=== PATIENT | female | born 1990 | race African-American/Black ===

== ENCOUNTER 2017-01-13 12:39 | Emergency (ER) | payer SELFPAY ==
[~2017-01-13] VITALS: Ht 175.3 cm; Wt 65.0 kg
[2017-01-13] MEDS ORDERED: SOD CHLORIDE 0.9% 1,000 ML IV STA ×2 (12:41→14:34)
[2017-01-13] MEDS ORDERED: morphine 4 MG/ML VIAL IV STA (12:41)
[2017-01-13] MEDS ORDERED: ONDANSETRON 4 MG INJ IV STA ×4 (12:41→17:15)
[2017-01-13 12:52] VITALS: Ht 175.3 cm; Wt 65.0 kg
[2017-01-13 13:27] LABS: ADD SCAN DIFF NO
[2017-01-13 13:28] LABS: BASOPHIL # 0.1 10^3/ul (0.0-0.1); BASOPHILS % 0.9 % (0.0-2.0); EOSINOPHILS # 0.3 10^3/ul (0.0-0.5); HEMATOCRIT 33.8 % (37.0-47.0); HEMOGLOBIN 11.1 g/dl (12.0-16.0); LYMPHOCYTES # 2.1 10^3/ul (0.8-2.9); LYMPHOCYTES % 16.6 % (15.0-51.0); MEAN CORPUSCULAR HEMOGLOBIN 27.3 pg (29.0-33.0); MEAN CORPUSCULAR HGB CONC 32.8 g/dl (32.0-37.0); MEAN CORPUSCULAR VOLUME 83.3 fl (82.0-101.0); MEAN PLATELET VOLUME 9.7 fl (7.4-10.4); MONOCYTE # 0.5 10^3/ul (0.3-0.9); NEUTROPHIL # 9.8 10^3/ul (1.6-7.5); NEUTROPHILS % 76.2 % (39.0-77.0); PLATELET COUNT 287 10^3/UL (140-415); RED BLOOD COUNT 4.06 10^6/ul (4.20-5.40); RED CELL DISTRIBUTION WIDTH 15.8 % (11.5-14.5); WHITE BLOOD COUNT 12.9 10^3/ul (4.8-10.8)
[2017-01-13 13:45] LABS: INR 0.95; PARTIAL THROMBOPLASTIN TIME 28.3 Sec (25.0-35.0); PROTIME 12.7 Sec (12.2-14.2)
[2017-01-13] MEDS ORDERED: HYDROmorphONE 1 MG/ML SYG IV STA ×3 (13:47→17:15)
[2017-01-13 13:48] LABS: ALBUMIN 4.1 g/dl (3.3-4.9); ALBUMIN/GLOBULIN RATIO 1.13; BILIRUBIN,INDIRECT 0.7 mg/dl (0-1.1); BILIRUBIN,TOTAL 0.7 mg/dl (0.2-1.3); CALCIUM 9.3 mg/dl (8.4-10.2); CREATININE 0.76 mg/dl (0.44-1.00); POTASSIUM 3.5 mmol/L (3.5-5.1); TOTAL PROTEIN 7.7 g/dl (6.1-8.1)
--- NOTE | 2017-01-13 14:06 | RADRPT ---
PROCEDURE: Pelvic ultrasound. CLINICAL INDICATION: Pelvic pain TECHNIQUE: Flores scale, color doppler, spectral doppler ultrasound of the pelvis was performed with transabdominal and transvaginal transducers. COMPARISON: No prior studies are available for comparison. FINDINGS: Uterus: Position: Anteverted. 3.6 x 2.0 x 2.5 cm intramural fibroid of the anterior uterine body does not appear to reach the endo metrium. 2.3 x 2.3 x 2.5 cm subserosal appearing fibroid of the right anterior uterine body. Normal appearance of the endometrium. Ovaries: Normal sized ovaries with preserved blood flow. No adnexal masses. Small normal appearing follicles are observed within both ovaries measuring less than 2.0 cm. Free fluid: Trace amount. Measurements: Endometrium: 0.9 cm Uterus: 7.8 x 5.2 x 5.8 cm Right ovary: 3.7 x 2.0 x 2.2 cm Left ovary: 2.7 x 1.6 x 1.9 cm IMPRESSION: Normal appearance of both ovaries. Moderately sized uterine fibroids. Normal appearance the endometrium. RPTAT: AADD .Mihai Jones MD, Date Time Electronically viewed and signed by .Mihai Jones MD, on 01/13/2017 14:06 .B/
[2017-01-13] MEDS ORDERED: SOD CHLORIDE 0.9% 100 ML ONE (14:09)
[2017-01-13] MEDS ORDERED: IOHEXOL 300MG/ML 150 ML BTL ONE (14:09)
--- NOTE | 2017-01-13 14:35 | RADRPT ---
PROCEDURE: CT abdomen and pelvis with contrast. CLINICAL INDICATION: Abdominal pain TECHNIQUE: CT of the abdomen/pelvis was performed utilizing axial images with reconstructions in s agittal and coronal planes following the intravenous administration of 95 cc Omnipaque-300 contrast. The administered radiation dose is CTDI 6.04 mGy, DLP 331.62 mGy-cm. One or more of the following d ose reduction techniques were used: Automated exposure control, Adjustment of the mA and/or kV accor ding to patient size, or Use of iterative reconstruction technique. COMPARISON: There are no similar studies submitted for comparison. FINDINGS: Lung bases: The lung bases are clear except for mild peripheral atelectasis. .The heart is normal s ize without pericardial effusion. CT ABDOMEN: Gastrointestinal tract: There is no bowel obstruction.No abnormal colonic wall thickening is identif ied.There is no pneumoperitoneum. The appendix is not definitely visualized. Liver: The liver is normal in size without focal lesion.There is no intrahepatic ductal dilatation. Gallbladder: The gallbladder is grossly unremarkable. Pancreas: The pancreas is grossly unremarkable. Spleen: The spleen is normal in size without focal lesion. Kidneys: The kidneys are normal in size and contour. A punctate calcification is seen in the inferio r pole of the left kidney. Punctate calcification is also seen in the interpolar region of the righ t kidney. A 4 mm right proximal ureteral stone is noted. There is associated mild right hydronephro sis. Sub-centimeter low attenuation lesion in the interpolar right kidney is too small to definitiv edwar characterize. Adrenal glands: The bilateral adrenal glands are unremarkable. Retroperitoneum: There is no retroperitoneal adenopathy.The aorta is normal in caliber. CT PELVIS: Pelvic organs: The uterus contains several fibroids. Involuting cysts are seen in the right ovary. Bladder: The bladder is unremarkable. There is a small amount of free fluid in the pelvis which may be physiological. No pelvic adenopath y is identified. Osseous structures: No destructive lytic or blastic osseous lesion is identified. IMPRESSION: 1. Right proximal ureteral 4 mm stone with mild right hydronephrosis. 2. Bilateral punctate nephrolithiasis. 3. Fibroid uterus. 4. Involuting cysts in the right ovary. 5. Small volume free fluid in the pelvis, likely related to a ruptured ovarian cyst. RPTAT: PP Igor Schwab, Physician Date Time Electronically viewed and signed by Igor Schwab, Physician on 01/13/2017 14:35 /
[2017-01-13] MEDS ORDERED: KETOROLAC 30 MG INJ IV STA (15:10)
[2017-01-13] MEDS ORDERED: IBUP800T25 PO (17:10)
[2017-01-13] MEDS ORDERED: CEPH-443 PO (17:10)
[2017-01-13] MEDS ORDERED: HYDR-906 PO (17:10)
[2017-01-13] MEDS ORDERED: TAMS-14 PO (17:16)
--- NOTE | 2017-01-13 17:51 | ERD ---
ER Documentation Chief Complaint Date/Time DATE: 01/13/17 TIME: 17:41 Chief Complaint BIB RA FOR EVAL OF RT ABD PAIN HPI This is a 26-year-old female presents the emergency department complaining of a sudden onset of severe right lower quadrant pain that occurred just prior to arrival. The patient stated she awoke this morning and felt fine. She went to use the bathroom while urinating she stated there was a sharp pain in the flank region that began to radiate to the right lower quadrant. She stated the pain was 10 out of 10 in intensity. She felt nauseous and had one episode of nonbloody nonbilious emesis. She denies any frequency urgency or dysuria. She states she has never had any similar pain in the past. She denies any recent remote blunt or penetrating abdominal trauma. She denies any fever shaking or chills. She denies any abnormal urethral discharge. She states she has a history of uterine fibroids. He did not take any analgesic medicine prior to arrival ROS All systems reviewed and are negative except as per history of present illness. Medications Home Meds Active Scripts Tamsulosin Hcl* (Flomax*) 0.4 Mg Cap.er.24h, 0.4 MG PO BID for 7 Days, CAP Prov:JOMARSOTO 01/13/17 Ibuprofen* (Motrin*) 800 Mg Tab, 800 MG PO Q6H Y for PAIN AND OR ELEVATED TEMP, #30 TAB Prov:JOMAR,SOTO 01/13/17 Hydrocodone/Acetaminophen ([place] 5-325 Tablet) 1 Each Tablet, 1 TAB PO Q6H Y for PAIN, #20 TAB Prov:DIMITRIS HADLEYTHIA 01/13/17 Cephalexin* (Keflex*) 500 Mg Capsule, 500 MG PO QID for 7 Days, CAP Prov:JOMAR,SOTO 01/13/17 Allergies Allergies: Coded Allergies: No Known Allergy (Unverified , 01/13/17) PMhx/Soc Medical and Surgical Hx: pt denies Medical Hx, pt denies Surgical Hx Hx Alcohol Use: No Hx Substance Use: No Hx Tobacco Use: No Smoking Status: Never smoker Physical Exam Vitals Vital Signs Date Time Temp Pulse Resp B/P Pulse Ox O2 Delivery O2 Flow Rate FiO2 01/13/17 14:56 67 14 110/70 98 Room Air 01/13/17 12:52 98.0 60 19 130/94 100 Physical Exam Constitutional:Well-developed. Well-nourished. Patient appeared to be in a significant amount of discomfort secondary to pain. Tearful HEENT:Normocephalic. Atraumatic.Pupils were equal round reactive to light. Moist mucous membranes.No tonsillar exudates. Neck: No nuchal rigidity. No lymphadenopathy. No posterior cervical spine tenderness or step-offs. Respiratory: Not using accessory muscles of respiration.Lungs were clear to auscultation bilaterally. No rhonchi. No rales. No wheezing. Cardiovascular: Regular rate regular rhythm.No murmurs. No rubs were appreciated.S1, S2 normal. Distal pulses are palpable 2+ bilaterally. GI: Abdomen was soft. Tenderness in the right lower quadrant with negative psoas and obturator sign. Right CVA tenderness. Non Distended. No pulsatile abdominal masses or bruits. No rebound. No guarding. Bowel sounds were present and normal. : Pelvic exam was deferred by patient. She did however agree to a transvaginal ultrasound to be performed. Muscle skeletal: Full range of motion of both the upper and lower extremities bilaterally.Normal muscle tone.No assymetrical calf tenderness or swelling. Skin: No petechia, no purpura. No lesions on the palms or the soles of the feet. No maculopapular rash. NEURO: Patient was alert, awake, orientated x3.No facial droop. Gait observed and normal with no ataxia.Speech had regular rate and rhythm. No focal neurological deficits. Result Diagram: 01/13/17 1305 01/13/17 1305 Results 24 hrs Laboratory Tests Test 01/13/17 13:05 White Blood Count 12.910^3/ul Red Blood Count 4.0610^6/ul Hemoglobin 11.1g/dl Hematocrit 33.8% Mean Corpuscular Volume 83.3fl Mean Corpuscular Hemoglobin 27.3pg Mean Corpuscular Hemoglobin Concent 32.8g/dl Red Cell Distribution Width 15.8% Platelet Count 61142^3/UL Mean Platelet Volume 9.7fl Neutrophils % 76.2% Lymphocytes % 16.6% Monocytes % 4.0% Eosinophils % 2.0% Basophils % 0.9% Neutrophils # 9.810^3/ul Lymphocytes # 2.110^3/ul Monocytes # 0.510^3/ul Eosinophils # 0.310^3/ul Basophils # 0.110^3/ul Nucleated Red Blood Cells # 0.010^3/ul Prothrombin Time 12.7Sec Prothrombin Time Ratio 1.0 INR International Normalized Ratio 0.95 Activated Partial Thromboplast Time 28.3Sec Sodium Level 142mmol/L Potassium Level 3.5mmol/L Chloride Level 104mmol/L Carbon Dioxide Level 23mmol/L Anion Gap 19 Blood Urea Nitrogen 11mg/dl Creatinine 0.76mg/dl Glucose Level 137mg/dl Calcium Level 9.3mg/dl Total Bilirubin 0.7mg/dl Direct Bilirubin 0.00mg/dl Indirect Bilirubin 0.7mg/dl Aspartate Amino Transf (AST/SGOT) 21IU/L Alanine Aminotransferase (ALT/SGPT) 23IU/L Alkaline Phosphatase 42IU/L Total Protein 7.7g/dl Albumin 4.1g/dl Globulin 3.60g/dl Albumin/Globulin Ratio 1.13 Amylase Level 78U/L Lipase 46U/L Serum HCG, Qualitative NEGATIVE Current Medications Medications (Trade) Dose Ordered Sig/Matthew Route PRN Reason Start Time Stop Time Status Last Admin Dose Admin Sodium Chloride (NS) 1,000 ml @ 1,000 mls/hr Q1H STAT IV 01/13/17 12:41 01/13/17 13:40 DC 01/13/17 13:07 Morphine Sulfate (morphine) 4 mg ONCE STAT IV 01/13/17 12:41 01/13/17 12:44 DC 01/13/17 13:05 Ondansetron HCl (Zofran Inj) 4 mg ONCE STAT IV 01/13/17 12:41 01/13/17 12:44 DC 01/13/17 13:05 Hydromorphone HCl (Dilaudid) 1 mg ONCE STAT IV 01/13/17 13:47 01/13/17 13:48 DC 01/13/17 13:54 Ondansetron HCl (Zofran Inj) 4 mg ONCE STAT IV 01/13/17 13:47 01/13/17 13:48 DC 01/13/17 13:54 IV Flush 10 ml 10 ml STK-MED ONCE .ROUTE 01/13/17 14:09 01/13/17 14:10 DC 01/13/17 14:41 Sodium Chloride (NS) 100 ml @ ud STK-MED ONCE .ROUTE 01/13/17 14:09 01/13/17 14:10 DC 01/13/17 14:41 Iohexol 150 ml 150 ml STK-MED ONCE .ROUTE 01/13/17 14:09 01/13/17 14:10 DC 01/13/17 14:42 Sodium Chloride (NS) 1,000 ml @ 1,000 mls/hr Q1H STAT IV 01/13/17 14:34 01/13/17 15:33 DC 01/13/17 14:52 Hydromorphone HCl (Dilaudid) 1 mg ONCE STAT IV 01/13/17 14:34 01/13/17 14:37 DC 01/13/17 14:52 Ondansetron HCl (Zofran Inj) 4 mg ONCE STAT IV 01/13/17 14:34 01/13/17 14:37 DC 01/13/17 14:52 Ketorolac Tromethamine (Toradol) 30 mg ONCE STAT IV 01/13/17 15:10 01/13/17 15:11 DC 01/13/17 15:55 Hydromorphone HCl (Dilaudid) 1 mg ONCE STAT IV 01/13/17 17:15 01/13/17 17:17 DC 01/13/17 17:36 Ondansetron HCl (Zofran Inj) 4 mg ONCE STAT IV 01/13/17 17:15 01/13/17 17:17 DC 01/13/17 17:36 Procedures/MDM This patient presented to the emergency department with abdominal pain and was seen and evaluated by myself. My differential diagnosis included but was not limited to abdominal aortic aneurysm, appendicitis, pancreatitis, perforated peptic ulcer, perforated viscus, Boerhaaves syndrome or visceral pain such as diverticulitis, DKA, esophagitis, hepatitis or bowel obstruction. The patient was placed on a marble and granite polisher, continuous pulse oximetry, and IV access was established by nursing staff. The patient was given intravenous morphine and Zofran and she did appear to be in a significant amount discomfort , moving around on the stretcher unable to find a comfortable position. I obtained a CT scan of the patient's abdomen due to the severity of her symptoms and concern for possible appendicitis. This was reviewed by the radiologist myself and indicated that the patient had a 4 mm nonobstructing stone. The patient also had an ultrasound of the pelvis performed and there is no evidence of ovarian torsion or an ectopic as her urine test was negative. She did have a small amount of free fluid that was likely secondary to ruptured ovarian cyst , she had mild leukocytosis that was thought to be secondary to an acute stress reaction. Observation Note: Time: 7 hours Family Hx: No Hypertension Evaluation: Multiple exams showed improving symptoms and no evidence of obstructive uropathy as the patient was urinating without any difficulty. Her pain completely resolved with multiple doses of opiates. She was sent home with a prescription of Keflex Flomax Motrin and [place] to take if needed for analgesic control. The patient was discharged home in fair condition. They were instructed to return to the emergency department at any time if there was any worsening of their condition. The patient stated they would follow up with their PCP in the next 24-48 hours to initiate a suitable medication regimen under the care of their PCP as well as to allow their PCP to monitor any drug reactions. The patient was discharged home with prescriptions after they gave informed consent to the new medication. They were also fully informed by myself on the adverse effects and adverse drug interactions in order to provide adequate safeguards to prevent possible adverse reactions to medications. Departure Diagnosis: Primary Impression: Ovarian cyst Laterality: right Qualified Code: N83.201 - Cyst of right ovary Additional Impression: Kidney stone Condition: Fair Patient Instructions: Ovarian Cyst, Kidney Stone W/ Colic SOTO HADLEY Jan 13, 2017 17:50
[2017-01-13 18:16] VITALS: BP 113/93; PULSE 75; RESP 16; TEMP 98.4
== END 2017-01-13 18:19 | disposition home or self-care (01) ==
LOC: E/R 12:39
DX: N83.201 Unspecified ovarian cyst, right side (principal); N20.0 Calculus of kidney; R10.2 Pelvic and perineal pain
CPT/HCPCS: 74177; 76830; 76856; 80053; 82150; 83690; 84703; 85025; 85610; 85730; 96374; 96375; 96376; 99285; J1170; J1885; J2270; J2405; J7030; Q9967